=== PATIENT | female | born 1990 | race Two or more races ===

== ENCOUNTER 2023-01-18 21:21 | Emergency (ER) | payer BC ==
[~2023-01-18] VITALS: Ht 157.5 cm; Wt 59.9 kg
[2023-01-18] MEDS ORDERED: NP THYROID15 MG PO (22:12)
== END 2023-01-18 23:52 | disposition home or self-care (01) ==
LOC: ER 21:21
DX: M25.572 Pain in left ankle and joints of left foot (principal)